=== PATIENT | female | born 1985 | race Caucasian/White ===

== ENCOUNTER 2023-05-16 08:20 | Outpatient (AMB) | payer OTHER, SELFPAY ==
--- NOTE | 2023-05-16 09:45 | MHC.OFFWIV ---
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 denies fever. Did Covid test at home which came back negative. Patient Tobacco Use Status: Current everyday Tobacco user Allergies No Known Allergies Allergy (Verified 05/16/23 09:49) Do you need a note to return to daycare/school/sports/work: Yes HPI HPI Comments History of Present Illness Details Patient is a 38-year-old female in today for a sick visit. She is a secondary spanish teacher. She states that for the past 2 days she has felt chilled, nausea, headache, cough, with 1 episode of vomiting. Denies shortness of breast, dizziness, chest pain. Will obtain in office upper respiratory swab. [facility] Social History Patient Tobacco Use Status: Current everyday Tobacco user Review of Systems Const Details: Constitutional : No Weight loss, No Fever, Admits Chills, No Fatigue, No Malaise ENT/Mouth : No sore throat, No Rhinorrhea, Eyes: No Eye Pain, No Swelling, No Redness Cardiovascular : No Chest Pain, No SOB, No Dyspnea on Exertion, No Orthopnea, No Edema, No Palpitations Respiratory : Admits Cough, No Sputum, No Wheezing Gastrointestinal : No Nausea, Admits Vomiting once, No Diarrhea, No Constipation, No abdominal Pain, No Hematochezia, No Melena Genitourinary : No Dysuria, No Urinary Frequency, No Hematuria, Neuro : No Weakness, No Numbness, No Dizziness, No Headache All other systems reviewed and are negative Physical Exam Vital Signs: Last Vital Signs Temp 98.3 F 05/16/23 09:48 Pulse 78 05/16/23 09:48 BP 120/80 05/16/23 09:48 Pulse Ox 99 05/16/23 09:48 Oxygen Delivery Method Room Air 05/16/23 09:48 BMI result Body Mass Index 25.9 Vital signs reviewed and are stable Const Other: Appearance: Alert.? Oriented X3.? No acute distress.? ENT: Pharynx normal.? Neck: Normal inspection.? Neck supple.? CVS: Normal heart rate and rhythm.? Pulses normal.? Respiratory: No respiratory distress.? Breath sounds normal.? Neuro: Oriented X 3.? No motor deficit.? No sensory deficit. CN 2-12 intact Assessment & Plan Assessment & Plan (1) Upper respiratory infection: Comment: Will prescribe Benzonatate assist with cough. Patient has been educated that she can use Tylenol and Motrin for symptom relief. Educated to drink plenty of water. She has been instructed on signs of worsening symptoms and when to return to the walk-in clinic or when to present to the emergency room. The patient is agreeable to this plan. Code(s): J06.9 - Acute upper respiratory infection, unspecified Qualifiers: URI type: unspecified viral URI Qualified Code(s): J06.9 - Acute upper respiratory infection, unspecified Plan Patient is given medication benzonatate for cough. Has been instructed to rest and use [id number] medicine for symptom relief. She has been educated on when to report back to the walk-in or when to present to the emergency room Orders: Orders SARS-CoV2/FLU/RSV Today J06.9 - Acute upper respiratory infection, unspecified Medications: New benzonatate 100 mg PO BID PRN 14 caps 0RF cough Coding Level of Care Code Est Pt Level 2 (74281) Diagnoses Viral upper respiratory tract infection J06.9 URI type: unspecified viral URI Time Spent (min) 15
[2023-05-16 09:48] VITALS: BP 120/80; PULSE 78; TEMP 36.8; O2SAT 99; BMI 25.9
== END 2023-05-16 10:41 | disposition home or self-care (01) ==
PROVIDERS: Visit Provider Nurse Practitioner Primary Care
DX: J06.9 Acute upper respiratory infection, unspecified (principal)
CPT/HCPCS: 99213

== ENCOUNTER 2023-05-16 10:26 | Outpatient (REF) | payer OTHER, SELFPAY ==
[2023-05-16 15:27] LABS: Influenza A PCR NEGATIVE (Negative); Influenza B PCR NEGATIVE (Negative); Resp Syncy Virus RNA Qual PCR POSITIVE (Negative); SARS COV2 PCR INHOUSE NEGATIVE (Negative)
== END 2023-05-16 10:27 | disposition home or self-care (01) ==
LOC: HO.LNP 10:26
PROVIDERS: Visit Provider Nurse Practitioner Primary Care
DX: Z11.52 Encounter for screening for COVID-19 (principal); J06.9 Acute upper respiratory infection, unspecified
CPT/HCPCS: 0241U